=== PATIENT | female | born 1935 | race Caucasian/White ===

== ENCOUNTER 2020-10-13 09:19 | Emergency (ER) | payer OTHER ==
[~2020-10-13] VITALS: Ht 162.6 cm; Wt 63.5 kg
[2020-10-13] MEDS ORDERED: TYLENOL325 M1 PO (09:25)
[2020-10-13] MEDS ORDERED: BAYER CHEWABLE81 MG PO (09:26)
[2020-10-13] MEDS ORDERED: DULCOLAX10 MG RECTAL (09:26)
[2020-10-13] MEDS ORDERED: DEPAKOTE125 MG PO (09:27)
[2020-10-13] MEDS ORDERED: FLECAINIDE ACET50 M2 PO (09:27)
[2020-10-13] MEDS ORDERED: BUSPIRONE HCL15 MG PO (09:27)
[2020-10-13] MEDS ORDERED: MELATONIN5 MG SUBLING (09:28)
[2020-10-13] MEDS ORDERED: OMEPRAZOLE 20 M20 M1 PO (09:28)
[2020-10-13] MEDS ORDERED: TOPROL XL25 MG PO (09:28)
[2020-10-13] MEDS ORDERED: LEVO-T100 MCG PO (09:28)
[2020-10-13] MEDS ORDERED: NORCO5 PO (09:28)
[2020-10-13] MEDS ORDERED: MIRALAX119 GM PO (09:28)
[2020-10-13] MEDS ORDERED: POTASSIUM20 PO (09:29)
[2020-10-13] MEDS ORDERED: DESYREL150 MG PO (09:30)
[2020-10-13] MEDS ORDERED: SENOKOT8.6 MG PO (09:30)
[2020-10-13] MEDS ORDERED: ZOLOFT50 M1 PO (09:30)
[2020-10-13] MEDS ORDERED: TYLENOL EXTRA500 MG PO ×2 (09:30→09:31)
[2020-10-13 09:42] LABS: ABSOLUTE NEUTROPHILS 3.9 thou/uL (1.4-8.2); BASOPHILS 1.4 % (0.0-2.0); EOSINOPHILS 1.8 % (0.0-3.0); HEMATOCRIT 33.5 % (37.0-47.0); LYMPHOCYTES 20.6 % (24.0-44.0); MCH 28.4 pg (26.0-34.0); MCHC 32.9 g/dL (28.0-37.0); MCV 86.3 fL (80.0-100.0); PLATELET COUNT 198 thou/uL (150-400); POLYS 68.2 % (36.0-66.0); RBC 3.89 mil/uL (4.20-5.00); RDW 14.1 % (10.5-14.5); WBC 5.7 thou/uL (4.0-11.0)
[2020-10-13 09:46] LABS: ANION GAP 11 mmol/L (7-16); BUN 21 mg/dL (7-18); CALCIUM 9.2 mg/dL (8.5-10.1); CHLORIDE 103 mmol/L (98-107); CO2 25 mmol/L (21-32); CREATININE 1.1 mg/dL (0.6-1.0); GLUCOSE 174 mg/dL (74-106); POTASSIUM 3.6 mmol/L (3.5-5.1); SODIUM 139 mmol/L (136-145)
[2020-10-13 09:59] LABS: ALBUMIN 3.3 g/dL (3.4-5.0); SGOT 20 U/L (15-37); SGPT 25 U/L (14-59); TOTAL BILIRUBIN 0.3 mg/dL (0.2-1.0); TOTAL PROTEIN 6.9 g/dL (6.4-8.2); TROPONIN-I <0.06 ng/mL (<0.06)
[2020-10-13 10:20] VITALS: BP 125/62
--- NOTE | 2020-10-14 08:45 | EKG ---
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 : [id number] Requested By: Kiki Arora Order Number: [id number] MD: Rajendra Katz Measurements Intervals [place] Rate: 66 P: PA: 63 QRS: 27 QRSD: 111 T: 7 QT: 442 QTc: 464 Interpretive Statements Atrial-paced complexes Nonspecific T abnormalities, anterior leads Baseline wander in lead(s) II No previous ECG available for comparison Electronically Signed On 10-14-2020 8:45:13 CDT by Rajendra Katz [email or web address] <ELECTRONICALLY SIGNED> By: Rajendra Katz MD, [facility] 10/14/20 0845 0923 2 Rajendra Katz MD, FACEileen /EPI
== END 2020-10-13 10:20 ==
LOC: ER 09:19
PROVIDERS: Emergency Medicine
DX: R07.89 Other chest pain (principal); Z79.2 Long term (current) use of antibiotics; Z79.82 Long term (current) use of aspirin; Z91.09 Other allergy status, other than to drugs and biological substances